=== PATIENT | female | born 1975 | race Hispanic/Latino ===

== ENCOUNTER 2019-04-03 06:07 | Inpatient (IN) | payer OTHER ==
--- NOTE | 2019-04-02 07:53 | HP ---
She is set for surgery on 04/03/2019. HISTORY OF PRESENT ILLNESS: Ms. Muñoz is a 43-year-old Latin-[place] female with history of previous section and tubal ligation and one vaginal delivery, who has been having increasingly heavy menstrual periods. She has also had a history of a previous myomectomy back in 1994 for symptomatic uterine myoma. She has had 4 total pregnancies, 2 full-term , and 2 miscarriages, one being a vaginal delivery and one having a section on her term pregnancies. She was evaluated in the office on 01/26/[address] Soriano for indolence, also reporting heavy irregular periods. She had a normal Pap smear at this visit and HPV screening and had an ultrasound for the abnormal heavy bleeding, which showed her to have a total uterine volume of 387 mL with a 6.8 x 6 cm largest uterine fibroid noted. The endometrial lining was difficult to evaluate due to the shadowing from the large fibroid. The adnexa were normal. She was given alternatives such as oral contraceptives versus Mirena IUD for the heavy bleeding, but now desires definitive surgical therapy due to the heavy flow and also cramping and pelvic discomfort from the uterine mass. PAST MEDICAL HISTORY: Significant for adult onset diabetes and hypertension. CURRENT MEDICATIONS: 1. Glipizide 5 mg daily. 2. Metformin 2 tablets daily. SOCIAL HISTORY: She is a nonsmoker. No excessive alcohol use. ALLERGIES: SHE HAS NO KNOWN DRUG ALLERGIES. PAST SURGICAL HISTORY: As noted also, cholecystectomy in 1995, section in 1995, tubal ligation in 1995, and uterine myomectomy in 1994. Pap smear obtained recently in 01/2019 along with HPV, which were negative. FAMILY HISTORY: Noncontributory. PHYSICAL EXAMINATION: VITAL SIGNS: Height is 5 feet, weight 193, and BMI of 37.7. Blood pressure 120/78, pulse 76, respiratory rate 18, and O2 saturation on room air 97%. GENERAL: Well-developed, well-nourished, obese [place] female. HEENT: Within normal limits. CHEST: Clear to auscultation. HEART: Regular rate and rhythm. S1 and S2 heart sounds. No murmurs, rubs, or gallops. ABDOMEN: Soft, nontender with no palpable masses. PELVIC: Vulva and vagina had no lesions. Cervix had no lesions grossly. Uterus was approximately 12-week size, anteverted mass, irregular contour. With the previously noted transvaginal ultrasound findings, there were no adnexal masses. EXTREMITIES: Showed full range of motion. ASSESSMENT: This is a 43-year-old Latin-[place] female, G4, P2, A2 with prior section and uterine myomectomy for recurrent uterine fibroids 12-week size with heavy menstrual bleeding and dysmenorrhea and pelvic discomfort. The patient is desiring definitive surgical therapy. PLAN: For is a robotic total laparoscopic hysterectomy with bilateral salpingectomy. Plan for ovarian sparing as long as ovaries are normal in appearance. The patient may need to have the specimen removed with ExCITE procedure, but will note this more as we performed the case in regard to the uterine size and it fit through the pelvis. Job ID: [id number]
[2019-04-02 17:03] VITALS: BMI 36.5
[2019-04-02 17:53] LABS: Hemoglobin 10.3 g/dL (12.0-16.0); Mean Corpuscular HGB CONC 33.5 g/dL (32.0-36.0); Mean Corpuscular Volume 83.4 fL (78.0-98.0); Mean Platelet Volume 6.5 fL (7.4-10.4); Platelet Count 311 thou/uL (130-400); Red Blood Cell (RBC) Count 3.66 mill/uL (4.20-5.40); White Blood Cell (WBC) Count 7.4 thou/uL (4.8-10.8)
[2019-04-03] MEDS ORDERED: Bupivacaine HCl 0.5%/Epinephrine 1:200,000/PF 30 ml Vial ONE ×3 (06:33→16:24)
[2019-04-03] MEDS ORDERED: Famotidine/PF 20 mg/2ml Vial ONE (06:44)
[2019-04-03] MEDS ORDERED: Gabapentin 300 MG CAP ONE (06:44)
[2019-04-03] MEDS ORDERED: CeleCOXIB 100 MG CAP ONE (06:44)
[2019-04-03] MEDS ORDERED: Fentanyl 100 MCG/2 ML VIAL ONE ×3 (07:11→19:16)
[2019-04-03] MEDS ORDERED: Midazolam HCl 2 mg/2 ml Vial ONE (07:25)
[2019-04-03] MEDS ORDERED: Furosemide 20 MG/2 ML VIAL ONE (11:07)
[2019-04-03] MEDS ORDERED: PROPOFOL 200 MG/20 ML VIAL ONE (11:11)
[2019-04-03] MEDS ORDERED: Dexamethasone 20 MG/5 ML VIAL ONE (11:11)
[2019-04-03] MEDS ORDERED: Rocuronium Bromide 10 MG/ML (10ML VIAL) ONE (11:11)
[2019-04-03] MEDS ORDERED: Vecuronium 10 MG VIAL ONE (11:11)
[2019-04-03] MEDS ORDERED: PHENYLEPHRINE-NS 100 MCG/ML 10 ML SYRINGE ONE ×2 (11:11→13:31)
[2019-04-03] MEDS ORDERED: Ondansetron PF 4 MG/2 ML Vial ONE (11:11)
[2019-04-03] MEDS ORDERED: Glycopyrrolate 0.2 MG/ML 5 ML SYRINGE ONE (11:11)
[2019-04-03] MEDS ORDERED: Ketorolac Tromethamine 30 MG/ML VIAL ONE (11:11)
[2019-04-03] MEDS ORDERED: Iothalamate Meglumine 60% 50 ML VIAL FS ONE ×2 (11:39→14:49)
[2019-04-03] MEDS ORDERED: Levofloxacin 500 mg/D5W 100 ml Premix Bag ONE (12:07)
[2019-04-03] MEDS ORDERED: Fentanyl 250 MCG/5 ML VIAL ONE (13:05)
[2019-04-03] MEDS ORDERED: Phenylephrine 1% Nasal Spray 15 ML BOT ONE (13:31)
[2019-04-03] MEDS ORDERED: Phenylephrine HCL 10 MG/ML VIAL ONE (13:33)
[2019-04-03] MEDS ORDERED: CEFAZOLIN 1 GM VIAL ONE (15:57)
[2019-04-03] MEDS ORDERED: Dextrose 5% in Water 1,000 ML IV PRN ×2 (16:26→17:04)
[2019-04-03] MEDS ORDERED: Dextrose 50% Abboject 50 ML SYRINGE SLOW IVP PRN ×2 (16:26→17:04)
[2019-04-03] MEDS ORDERED: Neomycin-Polymyxin 1 ML AMP ONE (16:27)
[2019-04-03] MEDS ORDERED: Insulin Regular 300 UNITS/3 ML VIAL SC PRN (17:04)
[2019-04-03] MEDS ORDERED: Morphine Sulfate 2 MG/ML SYRINGE SLOW IVP PRN (17:33)
[2019-04-03] MEDS ORDERED: Promethazine HCl 25 MG/ML VIAL IM PRN ×2 (17:33→17:45)
[2019-04-03] MEDS ORDERED: Ondansetron HCl/PF 4 MG/2 ML Vial IVP PRN (17:33)
[2019-04-03] MEDS ORDERED: Promethazine HCl 25 MG/ML VIAL SLOW IVP PRN (17:33)
[2019-04-03] MEDS ORDERED: PACU-Morphine 4MG/ML VIAL SLOW IVP PRN (17:33)
[2019-04-03] MEDS ORDERED: HYDROmorphone 2 MG/ML VIAL SLOW IVP PRN (17:33)
[2019-04-03] MEDS ORDERED: Meperidine HCl/PF 25 MG/ML VIAL SLOW IVP PRN (17:33)
--- NOTE | 2019-04-03 17:37 | RAD ---
Retrograde pyelogram: 04/03/2019 HISTORY: Cystoscopy FINDINGS: 3 limited coned down images are provided. The second image is limited by motion artifact. T here is a collection of contrast media overlying the right sacrum with catheter tubing inferior to this. This either represents a markedly dilated ureter or extraluminal contrast media. There is contr ast media within the renal collecting system on the left, only partially imaged, with dilation of the left ureter and blunting of the left calyces suggesting possible obstructive uropathy. Correlatio n with real-time imaging is essential given limited assessment on this examination. Limited bilateral retrograde pyelogram as above.
[2019-04-03] MEDS ORDERED: Ondansetron PF 4 MG/2 ML Vial IVP PRN (17:45)
[2019-04-03] MEDS ORDERED: diphenhydrAMINE 25 MG CAP PO PRN (17:45)
[2019-04-03] MEDS ORDERED: Estradiol 0.05mg/24 Hour Patch (Weekly) TD SCH (17:45)
[2019-04-03] MEDS ORDERED: Bisacodyl 10 MG SUPP PR PRN (17:45)
[2019-04-03] MEDS ORDERED: Zolpidem Tartrate 5 MG TAB PO PRN (17:45)
[2019-04-03] MEDS ORDERED: Sodium Chloride 0.9% 10 ML ONE (17:58)
[2019-04-03] MEDS ORDERED: Ropivacaine HCl/PF 750 ML in Premix Bag 1 BAG NERVE BLCK SCH (18:00)
[2019-04-03] MEDS ORDERED: Proparacaine 0.5% Opth 15 ML BOT ONE (18:12)
[2019-04-03] MEDS ORDERED: Fluorescein Opthalmic Strip ONE (18:12)
[2019-04-03] MEDS ORDERED: Phenylephrine 2.5% Ophth Soln 5 ML BOT ONE (18:13)
[2019-04-03] MEDS ORDERED: Cyclopentolate 1% Opth Drop 2 ML BOT ONE (18:13)
[2019-04-03 18:17] LABS: Anion Gap 15 mmol/L (10-20); BUN (Urea Nitrogen) 9 mg/dL (7.0-18.7); Calc. Creatinine Clearance 112 mL/min (70-130); Calcium 8.6 mg/dL (7.8-10.44); Carbon Dioxide 24 mmol/L (22-29); Chloride 102 mmol/L (98-107); Estimated GFR-MDRD 72; Glucose 235 mg/dL (70-105); Potassium 3.7 mmol/L (3.5-5.1); Sodium 137 mmol/L (136-145)
[2019-04-03 18:31] LABS: Anisocytosis SLIGHT = 6-15 cells (100X) (0-5/hpf); Band 36 % (5-11); Hemoglobin 10.9 g/dL (12.0-16.0); Lymphocytes 3 % (21-51); MDiff Complete? YES; Mean Corpuscular HGB CONC 32.6 g/dL (32.0-36.0); Mean Corpuscular Hemoglobin 27.4 pg (27.0-31.0); Mean Corpuscular Volume 83.9 fL (78.0-98.0); Mean Platelet Volume 6.9 fL (7.4-10.4); Monocytes 3 % (0-10); Neutrophil 58 % (42-75); Platelet Count 321 thou/uL (130-400); Platelet Morphology Comment Appears Adequate; RBC Distribution Width 15.5 % (11.5-14.5); Red Blood Cell (RBC) Count 3.97 mill/uL (4.20-5.40); White Blood Cell (WBC) Count 15.6 thou/uL (4.8-10.8)
--- NOTE | 2019-04-03 18:34 | CT ---
CT abdomen noncontrast CT pelvis noncontrast: (Urolithiasis protocol) DATE: 04/03/2019 HISTORY: 43-year-old female status post recent laparoscopic hysterectomy. Rule out right renal agenesis. COMPARISON: No prior CTs TECHNIQUE: IV injection of iodinated contrast media: None Oral contrast media: None FINDINGS: Other than for urolithiasis, the lack of IV and oral contrast limits the evaluation. There is absence of a normal right kidney. What is probably the right kidney is extremely small, measuring approximately 3.5 x 1.3 x 1 cm. It [place] no hydronephrosis. There is a small amount of residual contrast material in nondilated left renal collecting system, lef t ureter, and almost empty urinary bladder, from recent retrograde pyelogram. There is compensatory hypertrophy of left kidney. Briones catheter within the bladder. Numerous tiny foci of extraluminal gas within intraperitoneal and extraperitoneal portions of the pel jd cavity and scattered throughout the peritoneal cavity of the upper, mid, and lower abdomen. Midline skin tiana. Subcutaneous emphysema along the midline surgical wound. Vertically oriented dr bush catheter within the abdominal cavity and pelvic cavity on the right, connected to external drainage catheter travels through right paramedian lower abdominal wall muscle. Cholecystectomy clips in gallbladder fossa. Within the limitations of a noncontrast scan, no gross pathology identified involving liver, abdomina l aorta, adrenals, pancreas, and spleen. Normal appendix abuts the inferior tip of the liver. Extravasated contrast material is present in Morison's pouch, and there is nonspecific fat stranding in the right retroperitoneal space. There is also moderate fat stranding in the pelvis, with absence of the uterus. Streaky patchy airspace densities in the bilateral lower lobes of the lungs. IMPRESSION: 1) severely hypoplastic right kidney. 2) compensatory hypertrophy of the left kidney. 3) pneumoperitoneum and extraluminal gas within the pelvic cavity, plus regions of fat stranding and edema, consistent with history of recent laparoscopic hysterectomy. 4) surgical drainage catheter within the right side of the abdominal cavity and pelvic cavity. 5) streaky, patchy pulmonary densities at the bases of bilateral lower lobes. This is nonspecific, an d could either represent subsegmental atelectasis or aspiration.
[2019-04-03] MEDS: Acetaminophen 1,000 MG in Premix Bag 1 BAG IVPB SCH (21:57)
[2019-04-03] MEDS: Lactated Ringer's 1,000 ML IV SCH ×2 (21:58→21:59)
[2019-04-03] MEDS: Morphine 2 MG/ML SYRINGE SLOW IVP PRN ×2 (22:04→22:41)
--- NOTE | 2019-04-03 22:24 | OP ---
DATE OF PROCEDURE: 04/03/2019 PREOPERATIVE DIAGNOSES: Rule out right ureteral injury, intraoperative consultation, right robotic hysterectomy. POSTOPERATIVE DIAGNOSES: Rule out right ureteral injury, intraoperative consultation, right robotic hysterectomy. PROCEDURES PERFORMED: Bilateral retrograde pyelogram, cystoscopy, catheterization of the right ureter, exploratory laparotomy, ureterolysis, right ureterectomy, lysis of adhesions, and right oophorectomy. ANESTHESIA: General. ASSISTANTS: Bebo Andrews MD and Rachele Manzanares MD INTRAOPERATIVE FINDINGS: 1. Left retrograde pyelogram without evidence of extravasation or hydronephrosis. 2. No evidence of bladder injury. 3. Right retrograde pyelogram demonstrating extravasation of contrast in the mid ureteral 4. Right atretic ureteral orifice. 5. Right atretic ureter, blind-ending right proximal ureter traced to the level of proximal ureter just distal to the UPJ. 6. Intraoperative ultrasound demonstrating no gross renal moiety INDICATIONS FOR PROCEDURE AND HISTORY: Ms. Muñoz is a 43-year-old female, who was undergoing a robotic-assisted hysterectomy by Dr. Manzanares. She stated that the uterus was quite large, some adhesions were noted and lysis of adhesion was performed by Gynecologic Service. As there was concern to rule out bilateral ureteral injury given large uterine size, Dr. Manzanares did a cystoscopy and demonstrated good efflux from the left UO; however, the right UO was atretic per Dr. Manzanares and no significant output. She attempted to pass an open-ended catheter, which was somewhat difficult. Upon passing the open-ended catheter, she related there was some mucoid discharge from the right UO. A wire was passed by Dr. Manzanares to the level of the proximal ureter; however, it would not pass further. Therefore, urologic consultation was obtained. DESCRIPTION OF PROCEDURE: The patient was placed in the dorsal lithotomy position for robot. Specimen has been removed by Gynecology. I did provide 500 Levaquin for periprocedural for urologic intervention. A 21-Spanish cystoscope was utilized for cystoscopy, which demonstrated normal bladder mucosa with no evidence of bladder injury. The right UO was in normal anatomical location. The right UO demonstrated decreased opening, atretic appearing. However, there was some bullous edema consistent with recent attempted open-ended catheter placement. A left retrograde pyelogram was performed demonstrating no evidence of extravasation of contrast, filling defect, or stricture of concern. There was prompt excretion of contrast noted. At this time, we tried to pass a right open-ended catheter. There was some resistance at the intramural UO. Therefore, we used a 0.35 Sensor wire. This passed to the level of obstruction consistent with Dr. Manzanares's findings. I did pass the open-ended catheter to this level, which was at the level of the mid SI joint level and contrast was injected, which demonstrated gross extravasation of contrast. I was unable to pass wire nor open-ended catheter proximal to this region. Laparotomy was advised, to address the ureteral injury. An 18-Spanish, 10 mL Briones catheter was placed per urethra with an open-ended catheter into the level of the injury. We made a midline laparotomy incision just above the umbilicus to the level of the pubic symphysis. The rectus fascia was opened to the limits of skin incision. The peritoneal cavity was entered. Bowel contents were retracted superolaterally, White line of [place] was excised with sharp and blunt dissection. Lysis of adhesions was required as there were some adhesions from open cholecystectomy. Bowel contents then were retracted to visualize the retroperitoneal space. The ureteral after was palpated. The right ovary was near the area of extravasation confirmed with indigo injection retrograde, where there was concern for iatrogenic injury. Dr. Manzanares was present throughout the procedure, mobilizing the right ovary even further as it was hindering mobilization of the ureter. The right ovary was retracted lateromedially. Due to complicated picture/nature of this case with atretic right ureter, ureter needed to be mobilized proximal and distally for staging. Right ovary was hindering her mobilization. I contacted Dr. Manzanares regarding her right ovary. She stated that if needed we are to proceed to remove the ovary so that we could optimally mobilize the ureter for reconstructive surgery. As such, the right ovary was dissected off its pedicle and ligated with 2-0 Vicryl sent for specimen. The ureter was dissected with blunt and sharp dissection and appeared to be atretic and decreasing caliber. The ureter was dissected proximal and distal. We used indigo carmine injection through the open-ended catheter to isolate the area that may be concerning for extravasation. We did identify the area just at the level of the ovarian ligament-round ligament region. We then opened the ureter at this level to perform an end-to-end ureteroureterostomy. However once opening the ureter at this level, it appeared to be stenotic and very small, consistent with ureteral stricture. Moreover no significant output was noted from the right kidney. We had difficulty passing wire distally and proximally as it appeared to be quite atretic. With manipulation, we were able to pass an open-ended catheter and a wire distally stenting the distal transected portion of the ureter. This required ureterotomy to open the stenotic ureter. With the distal ureter protected, we then further dissected along the proximal ureter to mobilize. The proximal cut end of the ureter appeared to be atretic. This required Brothers scissors to open the ureter, so that we could even pass the 5-Spanish open-ended catheter and a guidewire. Using fluoroscopy, we were able to see the course of the wire. It was difficult to pass. There was some extravasation of contrast with further injection of contrast proximally and with further inspection, mobilizing it appeared to be submucosal. Therefore, we made a decision to mobilize the ureter all the way to the kidney to assess the degree of stricture , to stage options for reconstructive surgery. The bowel contents were retracted all the way up to the liver. We did not find a [place] kidney. The ureter was traced up to the level of the liver; however, there appeared to be blind ending atretic end. We did perform an intraoperative ultrasound demonstrating no evidence of kidney in situ. 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 Therefore, the ureter was transected as it is blind ended and appeared to have flimsy adventitia attachments proximally. This was sent for permanent specimen. Wound was copiously irrigated. The distal end of the ureter was then transected just above the bladder level with 2-0 Vicryl and ureteral stent, and all wires were removed. We did perform a cystogram demonstrating no evidence of extravasation of fluid. The wound was copiously irrigated. Bowel contents were returned in its anatomical location. Wound was closed with 0 PDS in a continuous fashion, and a #10 LALA was placed in the right lower quadrant. An On-Q system was placed. Skin was closed with skin tiana. I will obtain a followup stat CT scan to confirm the absence of right kidney. Job ID: [id number] [facility]
[2019-04-03] MEDS: HumaLOG 300 UNITS/3 ML VIAL SC PRN (22:32)
--- NOTE | 2019-04-03 23:26 | CON ---
DATE OF CONSULTATION: 04/03/2019 REASON FOR CONSULTATION: Rule out right ureteral injury. HISTORY OF PRESENT ILLNESS: Ms. Muñoz is a 43-year-old female who is undergoing right robotic assisted hysterectomy by Dr. Manzanares. She has prior history of two C sections, tubal ligation and a vaginal delivery. The specimen was removed and while Dr. Manzanares was checking for efflux of bilateral ureters as her uterus was quite large, demonstrated no significant efflux from the right kidney. She attempted to pass the catheter, however, could not and a wire was passed, however, unable to gain access proximally. Therefore, urologic consultation was obtained to rule out right ureteral injury. I did review her chart, which demonstrated that she did present to [facility] Room back in November 2018 complaining of right flank pain radiating to her groin. She was diagnosed with UTI, however, no imaging of her kidney was done. She was discharged with Keflex by the emergency room with no imaging obtained. Unfortunately, the patient has no imaging of record pertaining to her kidney. PAST MEDICAL HISTORY: Diabetes and hypertension. MEDICATIONS: Glipizide and metformin. SOCIAL HISTORY: Negative x3. ALLERGIES: NO KNOWN DRUG ALLERGIES. PAST SURGICAL HISTORY: Open cholecystectomy in 1995, 1995, tubal ligation 1995, and uterine myectomy 1994. FAMILY HISTORY: Negative. PHYSICAL EXAMINATION: Please see my consultation as an intraoperative consultation was performed, performing cystoscopy and expiratory laparotomy. IMPRESSION AND PLAN: Ms. Muñoz is a 43-year-old female who was undergoing robotic hysterectomy with no efflux from the right kidney, rule out right ureteral injury. Please see my operative note for full consultation and findings. Job ID: [id number] [facility]
[2019-04-04] MEDS: Morphine 4 MG/ML VIAL SLOW IVP PRN ×6 (03:10→22:46)
[2019-04-04] MEDS: Sodium Chloride 0.9% 1,000 ML IV SCH ×4 (03:23→14:22)
[2019-04-04] MEDS: Acetaminophen 1,000 MG in Premix Bag 1 BAG IVPB SCH ×3 (03:23→12:09)
[2019-04-04] MEDS: D5 0.9% NS w/ 20 mEq KCl 1,000 ML IV SCH ×2 (03:24→08:11)
[2019-04-04 06:53] LABS: Hemoglobin 8.6 g/dL (12.0-16.0); Mean Corpuscular HGB CONC 33.2 g/dL (32.0-36.0); Mean Corpuscular Hemoglobin 28.1 pg (27.0-31.0); Mean Corpuscular Volume 84.6 fL (78.0-98.0); Mean Platelet Volume 6.9 fL (7.4-10.4); Platelet Count 291 thou/uL (130-400); RBC Distribution Width 15.2 % (11.5-14.5); Red Blood Cell (RBC) Count 3.08 mill/uL (4.20-5.40); White Blood Cell (WBC) Count 10.5 thou/uL (4.8-10.8)
[2019-04-04 07:12] LABS: Anion Gap 10 mmol/L (10-20); BUN (Urea Nitrogen) 8 mg/dL (7.0-18.7); Calc. Creatinine Clearance 142 mL/min (70-130); Calcium 8.4 mg/dL (7.8-10.44); Carbon Dioxide 28 mmol/L (22-29); Chloride 104 mmol/L (98-107); Estimated GFR-MDRD Greater than 90; Glucose 122 mg/dL (70-105); Potassium 3.4 mmol/L (3.5-5.1); Sodium 139 mmol/L (136-145)
[2019-04-04] MEDS: Lactated Ringer's 1,000 ML IV SCH ×3 (07:29→16:23)
--- NOTE | 2019-04-04 07:34 | OP ---
DATE OF PROCEDURE: 04/03/2019 PREOPERATIVE DIAGNOSES: 1. A 43-year-old female, prior section x2 with tubal ligation, prior myomectomy and open cholecystectomy with symptomatic 14-to 16- week uterine fibroids. 2. Menorrhagia secondary to uterine fibroids with chronic anemia. POSTOPERATIVE DIAGNOSES: 1. A 43-year-old female, prior section x2 with tubal ligation, prior myomectomy and open cholecystectomy with symptomatic 14-to 16- week uterine fibroids. 2. Menorrhagia secondary to uterine fibroids with chronic anemia. 3. 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 Please see Dr. Lluvia Weeks's operative consultation. PROCEDURES PERFORMED: 1. Robotic total laparoscopic hysterectomy that was converted to a total laparoscopic hysterectomy with left salpingo-oophorectomy and right salpingectomy due to malfunction of the robot. 2. Lysis of adhesions. 3. ExCITE removal of uterine specimen. 4. Cystoscopy, postprocedure. MERCHANDISING STOCK ASSOCIATE SURGEON: Jody Castellanos MD ANESTHESIA: General endotracheal. ESTIMATED BLOOD LOSS: From the hysterectomy procedure was approximately 100 mL. ANTIBIOTICS: 2 g Ancef, on-call to OR and redosed after 4 hours, 2 g IV, also 500 mg Levaquin was given per Dr. Weeks. FINDINGS: 1. There are notable omental adhesions on the anterior abdominal wall and some filmy adhesions in the posterior cul-de-sac from previous surgeries, status post adhesiolysis. 2. Normal-appearing bladder mucosa with no evidence of leak noted intraoperatively and then post hysterectomy. 3. Normal-appearing ovaries, but the left ovary was significantly adhesed to the uterine specimen necessitating its removal. The uterus had multiple fibroids and was enlarged. This was noted at 14-to 15-week size. 4. Post hysterectomy procedure cystoscopy showed efflux of urine from left ureteral orifice. Right ureteral orifice area appeared attenuated and somewhat small in appearance and after visualization with administration of Lasix and methylene blue, there was no evidence of efflux of urine per ureteral orifice and therefore urological consult was made. PATHOLOGY: Uterus, cervix, left tube and ovary and right fallopian tube. In addition, right ovary was removed by the urological service in order to complete the urological surgical repair. DRAINS: LALA drain placed by urology service. DISPOSITION: To recovery room after completion of the surgery by Dr. Weeks and Dr. Andrews, please see their dictation. DESCRIPTION OF PROCEDURE: The patient previously received informed consent in regard to surgery. She was taken back to the operating room, where she received a general endotracheal anesthetic agent without complications. She was placed in dorsal lithotomy position with the use of Rohan stirrups and prepped and draped in usual sterile fashion. A Briones catheter was placed at this time, 100 mL of clear urine was removed. Side-arm speculum was placed in vagina. Anterior lip of cervix was grasped with single-tooth tenaculum. The uterus sounded to 12 cm and a size 12 cm ROSANA uterine manipulator with a 4.0-cm cervical cup was placed. Attention was then turned to the abdomen, where perspective trocar sites were infiltrated with 0.5%Marcaine with epinephrine. A 12-mm supraumbilical incision was made. Veress needle was then placed into the peritoneal cavity. Abdomen was insufflated with the patient's pressure of 15, approximately 4.5 L of carbon dioxide gas. Veress needle was then removed. A size 12-mm trocar was then placed and the robotic laparoscope was introduced through the trocar sleeve confirming proper entry. There was noted to be significant amount of omental adhesions to the lower abdomen due to the previous surgeries. There was a window that was safe for us to place through the right 8 mm robotic trocar and this was placed under laparoscopic guidance. In the left upper quadrant, we were able to place a size 11 mm licensed occupational therapy assistant port due to the adhesions in the right upper quadrant from the previous open cholecystectomy. We then placed the scope through the left upper quadrant trocar and this allowed for us to place the 8 mm left lower quadrant trocar and then under direct visualization with both sharp and blunt dissection and Endo Terry, we were able to take down the omental adhesions safely, avoiding any trauma to this from below and then clearing out a window that allowed us for surgical approach to the uterus. Once this was done, we proceeded to attempt to dock the robot. During the docking process, we encountered a fall alert alarm numerous times with docking of the camera arm of the robot. After shutting down the robot and restarting, this did not remedy the problem and therefore we made a call to bella angel , who is the [employer] robot rep here in town. He gave us other troubleshooting recommendations, but to our dismay this was not remedying the problem. We were then told and instructed to call the [employer] hotline for troubleshooting and the systematic approach to try and remedy the problem with the camera arm of the robot was unsuccessful. We then decided to approach the case with straight laparoscopic sticks. A 10-mm scope was placed in the infraumbilical region. We used the LigaSure device and Endo Terry and then began doing lysis of adhesion in the ports under direct visualization, removing the left fallopian tube and ovary, we had to take the IP ligament on the left side with the LigaSure due to adhesions to the left side of the uterus. We coagulated and transected through this and then this allowed for me to get to the left round ligament. This was coagulated and transected. There was a dense adhesion also up in the upper fundus to abdominal wall and this was transected through with the LigaSure, several bites, and hemostasis noted. This allowed also then for more mobilization of uterus and then allowed me to develop the vesicouterine peritoneum later. ADDENDUM: The anterior vesicouterine peritoneal layers were then dissected both sharply and bluntly with the Endo Terry and with LigaSure device____ developed vesicouterine peritoneum dissection in which we atraumatically dissected the bladder past the cervicovaginal angle so that we could delineate by the cervical cup from the manipulator. Then, I was able to bricklayer supervisor and skeletonize the left uterine vessels on this side. They were coagulated in the internal cervical os region. The right fallopian tube and ovary noted all to be normal. Had some adhesions, but we were able to develop the plane of the uterine ovarian ligament on the right side. This was coagulated and transected by Dr. Castellanos on this side with the LigaSure device. Then, we got to the right round ligament again, which was coagulated and transected. The anterior leaf of the broad ligament was also entered, and the vesicouterine peritoneum fold was incised in a layering technique. We were also to atraumatically dissect the bladder away from the cervical-vaginal region. Intermittent testing of the bladder integrity with backfilling was noted during this time and was confirmed to be watertight. The uterine vessels on the right again were skeletonized, and they were coagulated at the internal cervical os region. We cleared out some of the filmy adhesions on the backside of posterior cul-de-sac to give us a good window and access to the posterior cervix delineated by the cervical cup. We then used the heated hook device ___cautery we had secured the uterine vessels and then we created the colpotomy starting from 12 to 3 and then became from the backside from 6 to 3 and then 6 to 9 and then completed from 12 to 9. The specimen was removed. Coagulation of the remainder of the vessels at the 3 o' clock and 9 o'clock position were carried out with LigaSure, securing hemostasis. We then let the specimen lie in the abdomen. The GelPOINT device had been placed over the fascia and umbilicus. Then we had placed an Aces medium-sized bag in accordion type fashion in the left upper quadrant prior to this. We brought that bag down into the pelvis and the stitches after was positioned in the mid lower pelvis, and we opened the stitches and then we allowed to drag the specimen into the Aces bag and then was secured with tie and stay suture that had previously been placed. Once we had secured this, then we brought the bag up through the GelPOINT and pulled the specimen inside the bag through the GelPOINT. We put the Garcia O retractor inside the GelPOINT to protect the bag. Then, with the ExCITE procedure, we removed the specimen in a morcellating fashion within the bag. Once the specimen was completely removed, the bag was then removed through there, and it was confirmed to be watertight. The Garcia O retractor was then removed, and we proceeded to close the vaginal cuff after this had been completed, and I closed the vaginal cuff vaginally with interrupted [id number] stitches starting from a posterior stitch for anchor stitch and a sterile angle working towards the midline was secured in the vaginal cuff. Due to the nature of the case, a cystoscopy was then performed, and distention of the bladder was noted to be watertight. There were no abnormalities seen within the bladder mucosa. There was ureteral orifice on the left that was easily visualized with a 30-degree scope, and the efflux of urine was noted. The right ureteral orifice region appeared to be attenuated and smaller than usual. We waited for at least 10 minutes with no evidence of any efflux of urine from the thigh. Lasix 10 mg was given along with fluids by Anesthesia. Again, no efflux was seen. We also added methylene blue 1 mL IV to help along with this. We then summoned Urology Service and Dr. Weeks was called to the room. She proceeded to carry out a retrograde study with her noted findings. Please see her dictation in regard to this. By Dr. Weeks was on her way, I proceeded to close the fascial defect in the umbilicus area with a running 0 Vicryl suture with good hemostasis and closure of the skin with 4-0 Monocryl suture. Please see Dr. Weeks's for completion of their case. Job ID: [id number] MTDD
--- NOTE | 2019-04-04 08:14 | PRG ---
DATE OF SERVICE: 04/04/2019 SUBJECTIVE: The patient alert, awake, conversational, speaks Trinid[place]. Events of intraoperative findings and hospital course was reviewed with the patient in detail. Questions encouraged and answered. OBJECTIVE: VITAL SIGNS: Stable. I's and O's are not yet available, per nursing staff about over 1200 of urine, clear, dilute, LALA 110 mL serosanguineous. ABDOMEN: Incision dressing is intact. There is no rigidity. No rebound. LALA in place. PERTINENT LABORATORY DATA: White count today is 10, hemoglobin 8.6, platelet 291. Renal function stable. Creatinine 0.67. CT abdomen and pelvis, status post surgery last night, which I reviewed myself demonstrates a hypoplastic right kidney remnant, with no hydronephrosis. Left kidney demonstrates no evidence of hydronephrosis. Compensatory hypertrophy of the left kidney. Briones catheter in bladder. IMPRESSION AND PLAN: Ms. Muñoz is a pleasant 43-year-old female, intraoperative consultation obtained due to right ureteral injury. Intraoperative findings demonstrate there is a ureteral perforation from a wire placed by Gynecology; however, subsequent laparotomy and ureteral exploration demonstrated atretic /stenotic right proximal ureter. CT demonstrates severely hypoplastic kidney, nonfunctioning. 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 Status post cystoscopy, bilateral retrograde, ureterolysis, ureterectomy, right oophorectomy. I informed the patient that this is something congenital she has had lifelong with normal kidney function ; compensatory hypertrophy of the kidney. Renal function is stable. I informed the patient cautions regarding diet modification due to solitary kidney. Informed her that removal of hypoplastic right kidney is not necessary as it had a blind-ending ureter and nonfunctioning. She does have history of chronic lower back pain, which is attributed with activity, unrelated to incidental findings of hypoplastic right kidney. will monitor CBC, BMP. Advance diet as tolerated when passing flatus, bowel sounds active. Job ID: [id number] [facility]
[2019-04-04] MEDS ORDERED: Sodium Chloride 0.9% 1,000 ML IV SCH (15:00)
[2019-04-04] MEDS: Simethicone Chewable 80 MG TAB PO PRN (22:26)
[2019-04-05] MEDS: Morphine 4 MG/ML VIAL SLOW IVP PRN ×2 (04:15→06:27)
[2019-04-05] MEDS: Lactated Ringer's 1,000 ML IV SCH ×3 (07:39→22:30)
--- NOTE | 2019-04-05 07:58 | PDOC.EVN ---
Event Note - Event Note Event Note: No nausea. Had a small amount gas last night. Walking some. o: T 98.9 P 81 106/51 1L NC 95% ABD: bandage dry. LALA drain serosanguinous fluid. 85 cc past 24 hours. hypoactive bowel sounds. Glycemic control 120-140D/c D Ext: non tender. A/P Post op day 2 ..D/c felipe. Heplock IV. Increase activity. Continues clears until bowel sounds more active or passing flatus consistently. Abdominal binder..
--- NOTE | 2019-04-05 08:21 | PRG ---
DATE OF SERVICE: 04/05/2019 SUBJECTIVE: The patient denies nausea; however, has decreased appetite. OBJECTIVE: VITAL SIGNS: Stable. She is afebrile, 98.9, 81, 16, 95%, 106/51. I's and O's 830 and p.o. intake 500. Urine output 2500 mL, clear dilute. LALA 90 mL serosanguineous. ABDOMEN: Soft. Bowel sounds are present; however, diminished. LABORATORY DATA: No new labs this morning. IMPRESSION AND PLAN: Ms. Muñoz is a pleasant 43-year-old female, postoperative day #1, status post cystoscopy, bilateral retrograde pyelogram, right ureterectomy. Intraoperative findings of hypoplastic right kidney nonfunctioning. We will discontinue Briones, the patient is to be out of bed. She may have trial of clear liquids; however, I do not recommend advancing diet until she has more active bowel sounds. Morning labs pending. Job ID: [id number]
[2019-04-05 08:27] LABS: Hemoglobin 7.5 g/dL (12.0-16.0); Mean Corpuscular HGB CONC 31.6 g/dL (32.0-36.0); Mean Corpuscular Hemoglobin 27.2 pg (27.0-31.0); Mean Corpuscular Volume 86.2 fL (78.0-98.0); Mean Platelet Volume 6.8 fL (7.4-10.4); Platelet Count 281 thou/uL (130-400); RBC Distribution Width 15.1 % (11.5-14.5); Red Blood Cell (RBC) Count 2.74 mill/uL (4.20-5.40); White Blood Cell (WBC) Count 7.3 thou/uL (4.8-10.8)
[2019-04-05 09:22] LABS: Band 6 % (5-11); Eosinophils 1 % (0-10); Hypochromia SLIGHT = 6-15 cells (100X) (0-5/hpf); Lymphocytes 26 % (21-51); MDiff Complete? YES; Monocytes 5 % (0-10); Neutrophil 62 % (42-75); Platelet Morphology Comment Appears Adequate; Polychromasia MODERATE = 3-4 cells (100X) (0-2/hpf)
[2019-04-05] MEDS: Artificial Tear Sol 15 ML BOT EA EYE PRN ×2 (11:16→20:17)
[2019-04-05] MEDS: Morphine 2 MG/ML SYRINGE SLOW IVP PRN (12:21)
--- NOTE | 2019-04-05 12:59 | RAD ---
EXAM: Chest one view: HISTORY: Pneumonia follow-up COMPARISON: Abdomen and pelvic CT scan, 04/03/2019 FINDINGS: Heart size: Within normal limits. The lungs: Parenchymal changes in the left lower lobe evidence for pneumonia and/or partial lower lob e atelectasis. Minimal right lower lobe parenchymal changes, possible minimal pneumonia or subsegmental atelectasis. No evidence for pneumothorax. IMPRESSION: Left lower lobe parenchymal changes evidence for pneumonia and/or atelectasis. Minimal parenchymal changes in the right base. Continued follow-up for complete clearing.
--- NOTE | 2019-04-05 14:10 | CON ---
DATE OF CONSULTATION: 04/05/2019 HISTORY OF PRESENT ILLNESS: Vickie Muñoz is a 43-year-old female, admitted for hysterectomy. Apparently, she had a long operative procedure. I was consulted because of cough and sputum production. PAST MEDICAL HISTORY: Remarkable for diabetes, for which she takes glipizide and metformin. There is report that she has hypertension, but according to the H and P, she was not on any blood pressure pills. SOCIAL HISTORY: She is a nonsmoker, nondrinker, nondrug user. ALLERGIES: SHE HAS NO DRUG ALLERGIES. PAST SURGICAL HISTORY: Remarkable for cholecystectomy, , tubal ligation, and uterine myomectomy in the past. PAST FAMILY HISTORY: Negative for lung disease. REVIEW OF SYSTEMS: 10 point review of systems completed. She has no history of asthma or chronic obstructive pulmonary disease. PHYSICAL EXAMINATION: VITAL SIGNS: She is afebrile. Heart rate is 84, respiratory rate is 20, oximetry is 93 on room air, and blood pressure 102/54. HEENT: Pupils react. HEAD: Unremarkable. NECK: Unremarkable. LUNGS: Remarkable for end-expiratory wheezes. HEART: Regular rhythm, S1 and S2 are normal. ABDOMEN: Soft and diffusely tender. EXTREMITIES: Without edema. LABORATORY DATA: White count 7.3, hemoglobin 7.5, platelets 281,000. Sodium 139, potassium 3.4, chloride 104, bicarb 28, BUN 8, and creatinine 0.67. IMPRESSION: Atelectasis, retained secretions. I doubt she has a pulmonary infection this early after an operation. She is on Levaquin. Chest radiograph was reviewed by me. I see no infiltrate suggestive of pneumonia. We will start her on nebs, using EzPAP, and add guaifenesin to her medical regimen. She should gradually improve with an increase in activity. This is a minute consult with greater than 50% of time spent on unit coordinating care. Job ID: [id number] [facility]ENTERJeffrey
[2019-04-05] MEDS ORDERED: guaiFENesin ER 600 MG TAB PO SCH (15:00)
[2019-04-05] MEDS: HYDROcodone/Acetaminophen 5/325 mg Tablet PO PRN ×2 (16:04→20:16)
[2019-04-05] MEDS: Simethicone Chewable 80 MG TAB PO PRN (16:04)
[2019-04-05] MEDS: guaiFENesin ER 600 MG TAB PO SCH (20:15)
[2019-04-06] MEDS: HYDROcodone/Acetaminophen 5/325 mg Tablet PO PRN ×5 (00:18→18:40)
[2019-04-06] MEDS: guaiFENesin ER 600 MG TAB PO SCH ×3 (00:52→23:51)
[2019-04-06 06:58] LABS: Anion Gap 12 mmol/L (10-20); BUN (Urea Nitrogen) 6 mg/dL (7.0-18.7); Calc. Creatinine Clearance 142 mL/min (70-130); Calcium 8.6 mg/dL (7.8-10.44); Carbon Dioxide 28 mmol/L (22-29); Chloride 105 mmol/L (98-107); Estimated GFR-MDRD Greater than 90; Glucose 112 mg/dL (70-105); Potassium 3.3 mmol/L (3.5-5.1); Sodium 142 mmol/L (136-145)
[2019-04-06 07:47] LABS: Hemoglobin 8.8 g/dL (12.0-16.0); Mean Corpuscular HGB CONC 32.1 g/dL (32.0-36.0); Mean Corpuscular Hemoglobin 27.4 pg (27.0-31.0); Mean Corpuscular Volume 85.4 fL (78.0-98.0); Mean Platelet Volume 6.8 fL (7.4-10.4); Platelet Count 275 thou/uL (130-400); RBC Distribution Width 15.4 % (11.5-14.5); Red Blood Cell (RBC) Count 3.22 mill/uL (4.20-5.40); White Blood Cell (WBC) Count 7.9 thou/uL (4.8-10.8)
[2019-04-06 08:00] LABS: Band 5 % (5-11); Eosinophils 4 % (0-10); Lymphocytes 24 % (21-51); MDiff Complete? YES; Monocytes 3 % (0-10); Neutrophil 62 % (42-75); Nucleated RBC 1 % (0); Platelet Morphology Comment Appears Adequate; Polychromasia MODERATE = 3-4 cells (100X) (0-2/hpf); Reactive Lymphocytes 1 % (0-10)
--- NOTE | 2019-04-06 08:08 | PRG ---
DATE OF SERVICE: 04/06/2019 SUBJECTIVE: The patient passing flatus, tolerating clears. Passed flatus. Received 1 unit of packed RBC yesterday. OBJECTIVE: VITAL SIGNS: Stable, 98, 94, 16, 94, 105/54. I's and O's. Urine output 1550, LALA 30 mL over the last 12 hours. ABDOMEN: Soft. Bowel sounds are active today. No rigidity. No rebound. EXTREMITIES: No cyanosis, clubbing, or edema. LABORATORY DATA: Today's CBC: White count 7.9, hemoglobin 8.8 appropriate increase from 1 unit of packed RBC, platelet 275. Creatinine 0.67 from yesterday. IMPRESSION AND PLAN: Ms. Muñoz is a 43-year-old female: 1. Postop day #3, status post bilateral retrograde pyelogram, cystoscopy, right ureterectomy, ureterolysis, intraoperative findings of hypoplastic right kidney, blind ending right proximal ureter. 2. Anemia, status post 1 unit with appropriate increase in H and H. 3. Bowel function returning, passing flatus. Advance to regular diet, the patient is to be aggressively out of bed, LALA discontinued this morning. If her CBC is stable tomorrow morning, the patient can be discharged per discretion of Gynecology. Followup appointment with in chart. Dr. Pace covering me this weekend for p.r.n. issues. Job ID: [id number] MTDD
--- NOTE | 2019-04-06 08:17 | PDOC.EVN ---
Event Note - Event Note Event Note: Feels better after unit of blood. No nausea. Passing flatus. O: afebrile. T 98.1 122/60 Pulse 78 abdomen is soft. Active bowel sounds. Bandage dry. On Q pump in place. A/P Post op day 3 from TLH/BSO...Then ex lap for suspected ureter injury which was found to be a blind ended ureter with congenital malformation of right kidney yielding ureterectomy etc. Progressing well today. Plan for discharge in Am if HGB stable and continues to recover well. has rx for norco at home. F/u next week with me for wound check/ staple removal...
[2019-04-06] MEDS: Docusate 100 MG CAP PO SCH ×2 (09:02→21:29)
--- NOTE | 2019-04-06 09:51 | PRG ---
DATE OF SERVICE: 04/06/2019 SUBJECTIVE: Vickie Muñoz is actually smiling today. She also opened her eyes. OBJECTIVE: VITAL SIGNS: She is afebrile, heart rate is 78, respiratory rate is 20, oximetry is 94% on room air, blood pressure is 122/60. LUNGS: Clear. HEART: Regular rhythm. ABDOMEN: Soft, hot frame tender. LABORATORY DATA: White count 7.9, hemoglobin 8.8, platelets 275. Sodium 142, potassium 3.3, chloride 105, bicarb 28, BUN 6, creatinine 0.67. IMPRESSION: Atelectasis after a long operative procedure. PLAN: Continue with nebulizer treatments and increase her activity as tolerated. Job ID: [id number]
[2019-04-06] MEDS: Lactated Ringer's 1,000 ML IV SCH ×3 (10:58→23:51)
[2019-04-06] MEDS: HumaLOG 300 UNITS/3 ML VIAL SC PRN (12:33)
[2019-04-06] MEDS ORDERED: Milk Of Magnesia 30 ML UDCUP PO PRN (14:40)
[2019-04-06] MEDS: metFORMIN 500 MG TAB PO SCH (18:36)
[2019-04-07] MEDS: HYDROcodone/Acetaminophen 5/325 mg Tablet PO PRN ×2 (02:16→13:47)
[2019-04-07] MEDS: Artificial Tear Sol 15 ML BOT EA EYE PRN (04:17)
[2019-04-07 07:28] LABS: Hemoglobin 8.3 g/dL (12.0-16.0); Mean Corpuscular HGB CONC 33.4 g/dL (32.0-36.0); Mean Corpuscular Hemoglobin 28.1 pg (27.0-31.0); Mean Corpuscular Volume 84.1 fL (78.0-98.0); Mean Platelet Volume 6.6 fL (7.4-10.4); Platelet Count 289 thou/uL (130-400); RBC Distribution Width 15.3 % (11.5-14.5); Red Blood Cell (RBC) Count 2.96 mill/uL (4.20-5.40); White Blood Cell (WBC) Count 6.9 thou/uL (4.8-10.8)
[2019-04-07] MEDS ORDERED: glipiZIDE 5 MG TAB PO SCH (09:00)
[2019-04-07 12:03] VITALS: BP 119/66; TEMP 98.1
--- NOTE | 2019-04-07 13:27 | PRG ---
DATE OF SERVICE: 04/07/2019 SUBJECTIVE: She is still coughing, but breathing better. OBJECTIVE: VITAL SIGNS: Temperature 97.8, pulse 95, respirations 18, O2 saturation 95% on room air, blood pressure 117/57. HEENT: Unremarkable. NECK: No JVD. LUNGS: Fairly clear. CARDIAC: S1 and S2, regular. ABDOMEN: Soft. EXTREMITIES: No edema. LABORATORY DATA: White blood cell count 6.9, hematocrit 24.9, and platelet count 289. ASSESSMENT: Postoperative atelectasis that is slowly improving symptomatically. PLAN: She looks stable for discharge. I would continue her on an albuterol inhaler for a week after discharge and finish out at least a total of 7 days of Levaquin from Pulmonary standpoint. Job ID: [id number]
[2019-04-07] MEDS: Docusate 100 MG CAP PO SCH (13:46)
[2019-04-07] MEDS: Lactated Ringer's 1,000 ML IV SCH (13:46)
[2019-04-07] MEDS: metFORMIN 500 MG TAB PO SCH (13:46)
[2019-04-07] MEDS: guaiFENesin ER 600 MG TAB PO SCH (13:47)
--- NOTE | 2019-04-07 19:35 | DIS ---
DATE OF ADMISSION: 04/03/2019 DATE OF DISCHARGE: 04/07/2019 DIAGNOSES: 1. Fibroid Uterus 2. Intraoperative findings of hypoplastic right kidney and a blind-ending right proximal ureter. 3. Anemia. 4. Diabetes type 2. 5. Hypertension. PROCEDURES: 1. Total laparoscopic hysterectomy for fibroids with bilateral retrograde pyelogram, cystoscopy, right ureterectomy, and ureterolysis. 2. Transfusion of blood products. HOSPITAL COURSE: The patient was admitted for robotic total laparoscopic hysterectomy for fibroids and was found to have the above findings. This was converted to open for the procedure with Urology. She received 1 unit of blood products with improvement in her hemoglobin. She was asymptomatic for anemia. On postoperative day four, she was meeting all milestones for discharge and was discharged home. FOLLOWUP: 1. Follow up with Dr. Manzanares. Follow up on Tuesday for wound check and staple removal. 2. Follow up with Urology per Dr. Weeks. DIET: Regular. ACTIVITIES: No heavy lifting, pelvic rest. INSTRUCTIONS: The patient is to call or return for significant pain, fever, heavy bleeding, problems with urination, or other concerns. Job ID: [id number] [facility]
--- NOTE | 2019-04-09 11:02 | DIS ---
DATE OF ADMISSION: 04/03/2019 DATE OF DISCHARGE: 04/07/2019 DIAGNOSES: 1. Symptomatic 16-week uterine fibroids. 2. Menorrhagia and pelvic pain. 3. Chronic anemia due to menorrhagia. 4. Congenital atrophy of right kidney. 5. Chronic conditions: Adult onset diabetes mellitus. PROCEDURE PERFORMED: Total laparoscopic hysterectomy and LSO followed by retrograde cystoscopy with exploratory laparotomy with right ureterectomy and ureterolysis. CONSULTS: Urologic service with Dr. Lluvia Weeks. OTHER PROCEDURES PERFORMED: Blood transfusion. SUMMARY OF HOSPITAL COURSE: Ms. Vickie Muñoz is a 43-year-old female with prior section x2, myomectomy and an open cholecystectomy, who had been having ongoing problems with menorrhagia and anemia due to enlarged 16-week uterine fibroids. She elected to undergo surgical removal and definitive surgical therapy in regard to this. She underwent a robotic hysterectomy followed by straight stick total laparoscopic hysterectomy and LSO when the robotic device was nonfunctional. The total laparoscopic hysterectomy with LSO with ExCITE procedure was carried out removing a 450 g uterus with multiple benign fibroids on final pathology. At that time, due to the size of the uterus and the operative route, a postprocedure cystoscopy intraoperatively was performed. She was noted at that time to not have any efflux of urine from the right ureteral orifice, which was noted to be very small and atrophic appearing at the time of cystoscopy. The left UO was functioning well with efflux of urine. Multiple attempts with fluid and Lasix were given to no avail of excrescence of urine from the right UO. I attempted to pass a guidewire stent and there was noted to be some resistance in the upper region of the ureter past the vaginal cuff, and then therefore Dr. Weeks was summoned. She proceeded to perform retrograde cystoscopy with contrast and there was noted to be a normal-appearing left side with evidence of right ureter with some extravasation of dye at the pelvic brim region on the right. Due to this finding, we proceeded to do exploratory laparotomy. I assisted Dr. Weeks in this portion and as we dissected, we did ureterolysis of the right ureter and on locating the right ureter, there appeared to be just a small puncture wound from the guidewire that was causing some of the leakage. There was no evidence of any gross cautery effect or damage to the ureter in that regards or transection of the ureter. The ureter appeared to be very small and stenotic and in attempts to remove the puncture area of the ureter, Dr. Weeks was unable to pass stents and therefore she summoned her partner, Dr. Bebo Andrews for further urologic procedures. They basically ended up tracing the ureter all the way up towards the location of what be a right kidney. The ureter was abnormal to full extent with stenosis and atrophy noted throughout. There was no actual palpable kidney per their exam on the right side, and therefore it was felt the patient had congenital absence of the right kidney or atrophy. They proceeded to carry out a ureterectomy, and then the surgery was completed after this. A postoperative CT scan ordered by Dr. Weeks showed her having normal left kidney and there was appeared to be a very small nonfunctioning remnant of the right kidney. Postoperatively, the patient recovered, her diet was advanced slowly due to the degree of surgery she had had, but she did advance to clear liquids and was tolerating those well. Her glycemic control was kept under control with sliding scale insulin. She began ambulating some on postop day #1. Her creatinine was as at her baseline at 0.8 to 0.9 range. On postoperative day #2, hematocrit was noted to be more equilibrated with starting hematocrit from 30 down to 22. The patient did have some orthostatic symptoms with this and then received 1 unit of packed red blood cells on postop day #2. This resolved her orthostasis and she felt much better in regards to her hemodynamics status. Her postoperative hematocrit after the transfusion stabilized in the 25-26% range. We did have a Pulmonary consult due to some hypoxia most likely due to some atelectasis, but this was responsive to low amount of oxygen with 2 L and this resolved with neb treatments and increasing ambulation. She was discharged home on postop day #4 with discharge medications with [place] 5/325 one to two q.4-6 hours p.r.n. pain. On postop day #4, the patient remained afebrile. Vital signs were stable. Hematocrit was stable at 26% range. She was discharged home. She had prescription for [place] 5/325 mg 1 to 2 q.4 to 6 hours p.r.n. pain, [place] 0.05 mg patch weekly was also given. She is also told to abstain from excessive NSAID use due to finding that she has only one functional kidney. She will have a followup on postop day #10 in my office for staple removal and then in [address] Weeks. Job ID: [id number]
== END 2019-04-07 14:40 | disposition home or self-care (01) | DRG 742 ==
LOC: SDC 06:07 → EDSTATUS 16:30 → 3SE 21:28
PROVIDERS: ADMIT Obstetrics & Gynecology; ATTEND Obstetrics & Gynecology
PROC: BT14YZZ Fluoroscopy of Kidneys, Ureters and Bladder using Other Contrast (ICD-10-PCS; principal; 2019-04-03)
PROC: 0UT04ZZ Resection of Right Ovary, Percutaneous Endoscopic Approach (ICD-10-PCS; 2019-04-03)
PROC: 0TB60ZZ Excision of Right Ureter, Open Approach (ICD-10-PCS; 2019-04-03)
PROC: 0T760DZ Dilation of Right Ureter with Intraluminal Device, Open Approach (ICD-10-PCS; 2019-04-03)
PROC: 0UT94ZZ Resection of Uterus, Percutaneous Endoscopic Approach (ICD-10-PCS; 2019-04-03)
PROC: 0UT74ZZ Resection of Bilateral Fallopian Tubes, Percutaneous Endoscopic Approach (ICD-10-PCS; 2019-04-03)
PROC: 0TT60ZZ Resection of Right Ureter, Open Approach (ICD-10-PCS; 2019-04-03)
PROC: 8E0W4CZ Robotic Assisted Procedure of Trunk Region, Percutaneous Endoscopic Approach (ICD-10-PCS; 2019-04-03)
PROC: 0TJB8ZZ Inspection of Bladder, Via Natural or Artificial Opening Endoscopic (ICD-10-PCS; 2019-04-03)
DX: D25.0 Submucous leiomyoma of uterus (principal); J98.11 Atelectasis; D62 Acute posthemorrhagic anemia; Q60.3 Renal hypoplasia, unilateral; N92.0 Excessive and frequent menstruation with regular cycle; I10 Essential (primary) hypertension; E11.9 Type 2 diabetes mellitus without complications; Z90.49 Acquired absence of other specified parts of digestive tract; Z79.84 Long term (current) use of oral hypoglycemic drugs
CPT/HCPCS: 36415; 36416; 36430; 71045; 74176; 74420; 76000; 80048; 85007; 85027; 86850; 86900; 86901; 88305; 88307; 88331; 88332; 94640; C1758; C1769; J0131; J0670; J0690; J1100; J1885; J1940; J1956; J2250; J2270; J2370; J2405; J2704; J2795; J3010; J7620; P9016; Q9961; Q9968; S0028

== ENCOUNTER 2019-09-24 13:41 | Outpatient (CLI) | payer OTHER ==
--- NOTE | 2019-09-24 15:07 | MRI ---
MRI Lumbar Spine Noncontrast: HISTORY: Pain COMPARISON: None FINDINGS: Conus medullaris is normal in morphology and terminates at the L1-2 level. There is degenerative, Modic type II signal alteration of L5 and S1 endplates. Multilevel mild to moderate bilateral degenerative facet hypertrophy is present. L1-2:No significant stenosis L2-3:No significant stenosis L3-4:No significant stenosis L4-5:No significant stenosis L5-S1:There is a large left subarticular disc extrusion impinging the traversing left S1 nerve root a nd prominently narrowing the left subarticular zone. Moderate left neural foraminal stenosis is also present. Broad-based disc osteophyte is present, with mild right neural foraminal stenosis. IMPRESSION: Large left L5-S1 level disc extrusion impinging the left S1 nerve root, and producing moderate left f oraminal stenosis.
== END 2019-09-24 13:42 | disposition home or self-care (01) ==
LOC: BICMRI 13:41
PROVIDERS: ATTEND Physician Assistant
DX: M54.5 Low back pain (principal); M51.27 Other intervertebral disc displacement, lumbosacral region; M48.07 Spinal stenosis, lumbosacral region
CPT/HCPCS: 72148

== ENCOUNTER 2019-11-02 09:30 | Outpatient (CLI) | payer OTHER ==
--- NOTE | 2019-11-02 10:21 | CT ---
CT Stone Protocol History: Renal agenesis, frequency of micturition Comparison: CT Stone protocol March 2019 Findings: Lung bases are clear. Small posterior left diaphragmatic fat herniation. Severe right renal agenesis is unchanged. The left kidney is without nephroureterolithiasis or hydrou reteronephrosis. The appendix is visualized and is normal. No dilated loops of large or small bowel. No free intraperi toneal gas or fluid. Moderate narrowing of the L5/S1 disc space with endplate sclerosis. Moderate to severe bilateral neur al foraminal narrowing. Impression: 1. Unchanged severe right renal agenesis. 2. Normal appendix. 3. No left nephroureterolithiasis or hydroureteronephrosis.
== END 2019-11-02 09:31 | disposition home or self-care (01) ==
LOC: BICCT 09:30
PROVIDERS: ATTEND Urology
DX: R35.0 Frequency of micturition (principal); Q60.2 Renal agenesis, unspecified
CPT/HCPCS: 74176

== ENCOUNTER 2019-11-16 15:05 | Outpatient (CLI) | payer OTHER ==
--- NOTE | 2019-11-16 15:26 | RAD ---
Exam: 4 views lumbar spine HISTORY: Pain. Radiculopathy. Disc herniation. FINDINGS: 5 lumbar type vertebra. On the AP projection, there is mild rightward curvature of the lumb ar spine Lateral neutral weightbearing view demonstrates mild loss of disc space height at L5-S1. Remaining di sc space heights are preserved. No abnormal alignment in the neutral position, upon flexion or extension weightbearing views. IMPRESSION: Mild degenerative change at the lumbosacral junction. Mild rightward curvature lumbar spine in the AP projection. Findings may be positional. Correlate clinically.
--- NOTE | 2019-11-16 15:27 | RAD ---
RADIOGRAPH CERVICAL SPINE 4 VIEWS: DATE: 11/16/2019 HISTORY: 43-year-old female with cervicalgia and cervical radiculopathy. "Cervical herniated disc" TECHNIQUE: 3 lateral views in flexion, extension, and neutral. AP view. FINDINGS: At C5-6, there is moderate disc space narrowing, and moderate sized posterior endplate marginal osteo phytes that protrude into the anterior aspect of the spinal canal. Minimal degenerative retrolisthesis of C5 on C6. No instability between flexion and extension. All the rest of the disc sp aces are maintained. No prevertebral soft tissue swelling. No high-grade facet DJD. Loss of lordosis which could be due to muscle spasm. IMPRESSION: High-grade degenerative disc disease isolated to the C5-6 level.
== END 2019-11-16 15:06 | disposition home or self-care (01) ==
LOC: BICRAD 15:05
PROVIDERS: ATTEND Neurological Surgery
DX: M50.10 Cervical disc disorder with radiculopathy, unspecified cervical region (principal); M51.16 Intervertebral disc disorders with radiculopathy, lumbar region; M50.122 Cervical disc disorder at C5-C6 level with radiculopathy; M47.817 Spondylosis without myelopathy or radiculopathy, lumbosacral region; M43.9 Deforming dorsopathy, unspecified
CPT/HCPCS: 72050; 72110

== ENCOUNTER 2019-11-19 14:07 | Outpatient (CLI) | payer OTHER ==
--- NOTE | 2019-11-19 15:16 | MRI ---
MRI cervical spine noncontrast: DATE: 11/19/2019 HISTORY: 43-year-old female with "M 54.12 cervical radiculopathy" due to "M 50.20 cervical herniated disc" COMPARISON: None FINDINGS: Slight reversal of curvature. Vertebral body heights are maintained. No major bone marrow signal abno rmality identified. Images are somewhat degraded by patient motion. Cervical spinal cord demonstrate no obvious intramedullary signal abnormality. C1-2: No central stenosis. C2-3: Normal. C3-4: Very small central focal disc-osteophyte complex abuts the ventral surface of spinal cord. Mild central spinal canal stenosis. No significant neural foraminal stenosis. Disc space maintained. Mild left facet DJD. C4-5: Disc space maintained. Mild, shallow broad-based and central disc-osteophyte complex abuts the ventral surface of spinal cord. Mild to moderate central spinal canal stenosis due to developmentally short pedicles. Mild bilateral neural foraminal stenosis. No high-grade facet DJD. C5-6: Moderate disc space narrowing. Moderate sized left lateral focal disc herniation (plus central and right paracentral components) posteriorly displaces the posterior longitudinal ligament, and significantly indents and posteriorly displaces the spinal cord, causing moderate to severe central s rojelio canal stenosis, with partial effacement of CSF signal. Bilateral small to moderate-sized uncinate process osteophytes cause severe bilateral neural foraminal stenosis, left worse than right. Normal facet joints. C6-7: Disc space maintained. Normal facet joints. No high-grade central stenosis. No high-grade neura l foraminal stenosis. Hypointense signal at midline posterior to the C6 vertebral body on all pulse sequences. Uncertain whether this represents CSF flow artifact or migrated extruded disc material fro m C5-6 level with inferior migration, or from C6-7 level with superior migration. C7-T1: Mild to moderate bilateral facet DJD. Mild to moderate bilateral neural foraminal stenosis. No central stenosis. Disc space maintained. IMPRESSION: 1. Moderate degenerative disc disease at C5-6, where there is a moderate to large focal disc herniati on centered on the left side, impinging on the spinal cord significantly.. 2. Severe bilateral neural foraminal stenosis at C5-6.
== END 2019-11-19 14:08 | disposition home or self-care (01) ==
LOC: BICMRI 14:07 → TBSIIMAG 14:08
PROVIDERS: ATTEND Neurological Surgery
DX: M50.122 Cervical disc disorder at C5-C6 level with radiculopathy (principal); M50.11 Cervical disc disorder with radiculopathy, high cervical region; M48.02 Spinal stenosis, cervical region
CPT/HCPCS: 72040; 72100; 72141

== ENCOUNTER 2019-12-24 06:17 | Outpatient (CLI) | payer OTHER ==
[2019-12-24 13:46] LABS: Hemoglobin 13.6 g/dL (12.0-16.0); Mean Corpuscular HGB CONC 34.2 g/dL (32.0-36.0); Mean Corpuscular Hemoglobin 31.3 pg (27.0-31.0); Mean Corpuscular Volume 91.4 fL (78.0-98.0); Mean Platelet Volume 6.9 fL (7.4-10.4); Platelet Count 276 thou/uL (130-400); RBC Distribution Width 12.6 % (11.5-14.5); Red Blood Cell (RBC) Count 4.36 mill/uL (4.20-5.40); White Blood Cell (WBC) Count 7.3 thou/uL (4.8-10.8)
[2019-12-24 13:48] LABS: INR-International Normal Ratio 0.9; PTT 33.6 SEC (22.9-36.1); Prothrombin Time 12.6 SEC (12.0-14.7)
== END 2019-12-24 06:18 | disposition home or self-care (01) ==
LOC: LABBT 06:17
PROVIDERS: ATTEND Neurological Surgery
DX: Z01.812 Encounter for preprocedural laboratory examination (principal); M50.022 Cervical disc disorder at C5-C6 level with myelopathy
CPT/HCPCS: 85027; 85610; 85730

== ENCOUNTER 2019-12-28 06:21 | Day surgery (SDC) | payer OTHER ==
[2019-12-24 12:48] VITALS: BMI 37.5
[2019-12-28] MEDS ORDERED: Thrombin 5000 UNITS/5 ML VIAL ONE (06:24)
[2019-12-28] MEDS ORDERED: Midazolam HCl 2 mg/2 ml Vial ONE ×2 (06:47→06:56)
[2019-12-28] MEDS ORDERED: Fentanyl 100 MCG/2 ML VIAL ONE ×3 (06:56→09:44)
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
[2019-12-28] MEDS ORDERED: SUGAMMADEX SODIUM 200 MG/2 ML VIAL ONE (09:07)
[2019-12-28] MEDS ORDERED: diphenhydrAMINE 50 MG/ML VIAL IVP PRN (09:26)
[2019-12-28] MEDS ORDERED: Morphine 2 MG/ML SYRINGE SLOW IVP PRN (09:26)
[2019-12-28] MEDS ORDERED: Acetaminophen/Codeine 30-300mg Tablet PO PRN ×2 (09:26)
[2019-12-28] MEDS ORDERED: tiZANidine HCl 4 MG TAB PO PRN (09:26)
[2019-12-28] MEDS ORDERED: traMADol HCl 50 MG TAB PO PRN ×2 (09:26)
[2019-12-28] MEDS ORDERED: Acetaminophen 325 MG TAB PO PRN (09:26)
[2019-12-28] MEDS ORDERED: Morphine 4 MG/ML VIAL SLOW IVP PRN (09:26)
[2019-12-28] MEDS ORDERED: Acetaminophen 650 MG Suppository PR PRN (09:26)
[2019-12-28] MEDS ORDERED: Promethazine HCl 25 MG/ML VIAL IM PRN (09:26)
[2019-12-28] MEDS ORDERED: Promethazine 25 MG TAB PO PRN (09:26)
[2019-12-28] MEDS ORDERED: diphenhydrAMINE 25 MG CAP PO PRN (09:26)
[2019-12-28] MEDS ORDERED: Ondansetron PF 4 MG/2 ML Vial IVP PRN (09:26)
[2019-12-28] MEDS ORDERED: Promethazine HCl 12.5 MG SUPP PR PRN (09:26)
[2019-12-28] MEDS ORDERED: Sodium Chloride 0.9% 1,000 ML IV SCH (09:30)
[2019-12-28] MEDS ORDERED: Scopolamine 1.5 mg/72 hour Patch TD SCH (09:30)
[2019-12-28] MEDS ORDERED: Morphine 2 MG/ML SYRINGE ONE (10:15)
--- NOTE | 2019-12-28 10:16 | OP ---
DATE OF PROCEDURE: 12/28/2019 INTERNET SECURITY SPECIALIST: Julio Bailey PA-C PREOPERATIVE INDICATION: Treat pain and prevent neurological deterioration. PREOPERATIVE DIAGNOSIS: Cervical intervertebral disk disease at C5-C6 with cord compression and nerve root radiculopathy. POSTOPERATIVE DIAGNOSIS: Cervical intervertebral disk disease at C5-C6 with cord compression and nerve root radiculopathy. PROCEDURES PERFORMED: Anterior cervical diskectomy, intervertebral arthrodesis, placement of intervertebral biomechanical device, anterior cervical plating C5-C6, local morselized autograft, morselized allograft, and operating microscope. PREOPERATIVE MEDICATION: Ancef 2 g IV. DRAIN NUMBER: Zero. DRAIN TYPE: None. DESCRIPTION OF PROCEDURE: The patient was brought to the operating room. General endotracheal anesthesia was induced. The patient was carefully positioned on the operating table with her head supported by a donut-shaped headrest. A lateral fluoro radiograph was used to plan our incision. The right side of the neck was sterilely prepped and draped. We opened with a 10 blade knife, and we controlled bleeding with bipolar cautery. We dissected sharply to the platysma. We cut this muscle in line with our incision. We continued our dissection medial to the sternocleidomastoid and lateral to the trachea and esophagus. We arrived to the prevertebral space. We placed a marker on the spine and took a lateral fluoro radiograph to confirm the levels upon which we were operating. We then elevated the longus colli muscles off the anterior surface of C5 and C6 and put a self-retaining retractor beneath them. Distraction pins were placed at C5 and C6, and we distracted across the intervening interspace. We incised the interspace and removed disk contents using curettes and rongeurs. The operative microscope was brought into the field. Under microscopic magnification and using microsurgical techniques, we removed the remainder of the intervertebral disk. We removed the posterior longitudinal ligament. We accessed the ventral epidural space with a micro curette, and using [place] rongeurs, we removed all posterior osteophytes and posterior longitudinal ligament across the entire interspace from one neural foramen all the way to the other. With our decompression secured, we turned our attention to arthrodesis. Using curettes, we prepared the endplates for grafting. A bone rasp was brought into the field, and we measured the height of the interspace to 8 mm. An 8-mm PEEK intervertebral graft was brought into the field. Osteophytes removed during our decompression were cleaned of soft tissue attachments, morcellized and added into demineralized bone matrix as our fusion substrate. The substrate was packed into the center of the intervertebral graft, and the graft was advanced into the interspace under radiographic guidance to the appropriate depth. We then removed the operative microscope and the distraction pins. A 12 mm anterior cervical plate was brought into the field. We drilled helicopter pilot holes through the plate into the vertebral bodies at C5 and C6, and we affixed the plate using 14 mm screws. Fixed angle screws were used at C6 and variable angle screws at C5. We engaged the locking mechanism over each of the 4 screws. We irrigated copiously with bacitracin irrigation. AP and lateral fluoro radiographs confirmed adequate positioning of our instrumentation. We closed the wound in anatomical layers, and we applied a sterile dressing. This was a clean case, no contamination. Job ID: [id number]
[2019-12-28] MEDS ORDERED: Glycopyrrolate 0.2 MG/ML 5 ML SYRINGE ONE (11:05)
[2019-12-28] MEDS ORDERED: PROPOFOL 200 MG/20 ML VIAL ONE (11:05)
[2019-12-28] MEDS ORDERED: Dexamethasone 20 MG/5 ML VIAL ONE (11:05)
[2019-12-28] MEDS ORDERED: Rocuronium Bromide 10 MG/ML (10ML VIAL) ONE (11:05)
[2019-12-28] MEDS ORDERED: Ondansetron PF 4 MG/2 ML Vial ONE (11:05)
[2019-12-28] MEDS ORDERED: Lidocaine 1% PF 5 ML VIAL ONE (11:05)
[2019-12-28] MEDS ORDERED: HYDROcodone/Acetaminophen 5/325 mg Tablet ONE ×2 (11:18→15:42)
[2019-12-28] MEDS ORDERED: CEFAZOLIN 2 GM in Premix Bag 1 BAG IVPB SCH (14:00)
[2019-12-28] MEDS ORDERED: metFORMIN 500 MG TAB PO SCH (17:00)
[2019-12-29] MEDS ORDERED: glipiZIDE 5 MG TAB PO SCH (09:00)
== END 2019-12-28 16:30 | disposition home or self-care (01) ==
LOC: SDC 06:21
PROVIDERS: ATTEND Neurological Surgery
PROC: 0RG10A0 Fusion of Cervical Vertebral Joint with Interbody Fusion Device, Anterior Approach, Anterior Column, Open Approach (ICD-10-PCS; principal; 2019-12-28)
PROC: 0RT30ZZ Resection of Cervical Vertebral Disc, Open Approach (ICD-10-PCS; principal; 2019-12-28)
DX: M50.022 Cervical disc disorder at C5-C6 level with myelopathy (principal); M50.122 Cervical disc disorder at C5-C6 level with radiculopathy; E11.9 Type 2 diabetes mellitus without complications; Z79.52 Long term (current) use of systemic steroids; Z79.84 Long term (current) use of oral hypoglycemic drugs
CPT/HCPCS: 76000; C1713; C1776; J0690; J1100; J2001; J2250; J2270; J2405; J2704; J3010; J3490

== ENCOUNTER 2020-07-22 12:38 | Outpatient (CLI) | payer OTHER ==
--- NOTE | 2020-07-22 14:06 | RAD ---
CERVICAL SPINE: 07/22/20 Total of six images. Lateral view with neutral flexion and extension. INDICATIONS: Cervical radiculopathy. COMPARISON: Comparison made to films of 11/16/19. Postop anterior fusion changes are now noted at the C5-6 level. Anterior plate and screws and interbo dy implant is noted at this level. Vertebral bodies maintain height and alignment. Mild posterior sp ondylosis at C5-6. Alignment appears normally preserved with flexion and extension. IMPRESSION: Postop anterior fusion changes at C5-6 now noted. POS: AGW
== END 2020-07-22 12:39 | disposition home or self-care (01) ==
LOC: TBSIIMAG 12:38
PROVIDERS: ATTEND Specialist
DX: M54.12 Radiculopathy, cervical region (principal); Z98.1 Arthrodesis status
CPT/HCPCS: 72050

== ENCOUNTER 2020-10-14 10:47 | Outpatient (CLI) | payer OTHER ==
--- NOTE | 2020-10-14 11:41 | RAD ---
EXAM: XR Lumbar Spine Bending Min 4V PROVIDED CLINICAL HISTORY: Radiculopathy COMPARISON: None FINDINGS: 5 nonrib-bearing lumbar-type vertebral bodies are demonstrated. Right convexity rotoscoliosis of the lumbar spine is demonstrated. Sagittal lumbar alignment appears normal. There is no evidence for abnormal translational motion with flexion and extension. Vertebral body heights appear preserved. Pe dicles appear intact. Surgical clips are seen in the right upper quadrant. Intervertebral disc space heights appear preserved. IMPRESSION: As above.
--- NOTE | 2020-10-14 12:09 | MRI ---
MRI OF LUMBAR SPINE WITHOUT CONTRAST: INDICATION: Radiculopathy. COMPARISON: Comparison is made to MRI of lumbar spine dated 09/24/2019. Prior exam revealed degenerative disk tera nge at L5-S1 with extruded disk centrally and to the left. FINDINGS: Lumbar vertebrae maintain height and alignment. Degenerative disk and end plate changes are seen at L5-S1 similar to the prior study. The other disk spaces are normally maintained and exhibit normal s ignal. At L5-S1, there is a broad-based disk protrusion which is slightly more pronounced to the left. The large extrusion noted centrally has retracted and is much less pronounced today. The broad-based pro trusion today flattens the anterior thecal sac and does contact both traversing S1 nerve roots withou t significant displacement. There is left foraminal stenosis due to disk-osteophyte complex and face t hypertrophy. Mild right foraminal narrowing. Mild central canal stenosis due to disk protrusion a nd facet hypertrophy. No significant disk bulge or protrusion at the other lumbar levels. No other evidence of central can al or foraminal stenosis. IMPRESSION: Degenerative disk and end plate changes again noted at L5-S1. Broad-based disk protrusion is present at this level. The extruded disk seen to the left on the prior exam of 2019 has retracted, althoug h there continues to be left foraminal stenosis and central canal stenosis as described above. POS: KOMAL
== END 2020-10-14 10:48 | disposition home or self-care (01) ==
LOC: TBSIIMAG 10:47
PROVIDERS: ATTEND Neurological Surgery
DX: M51.16 Intervertebral disc disorders with radiculopathy, lumbar region (principal); M41.86 Other forms of scoliosis, lumbar region; M53.86 Other specified dorsopathies, lumbar region; M51.37 Other intervertebral disc degeneration, lumbosacral region; M51.27 Other intervertebral disc displacement, lumbosacral region; M48.07 Spinal stenosis, lumbosacral region
CPT/HCPCS: 72120; 72148